=== PATIENT | female | born 1980 ===

== ENCOUNTER 2018-03-11 10:55 | Emergency (ER) | payer OTHER ==
[2018-03-11 11:02] VITALS: BP 127/76; PULSE 74; RESP 16; TEMP 98.4; O2SAT 100
--- NOTE | 2018-03-11 12:53 | ED PDOC ---
HPI: Abdomen Time Seen by Provider: 03/11/18 12:11 Chief Complaint (Nursing): Breast Problem Chief Complaint (Provider): Breast Problem History Per: Patient History/Exam Limitations: no limitations Onset/Duration Of Symptoms: Intermittent Episodes Location Of Pain/Discomfort: Other (left pelvic/lower abdomen) Associated Symptoms: Other (breast pain) Additional Complaint(s): Ankita Ramírez is a 37 year old female with no past medical history, who presents to the emergency department with multiple complaints. Patient states she came in today with left breast pain, onset x3 days ago, associated with urinary symptoms such as increased urgency. Patient states she has had a history of intermittent left breast pain that comes and goes and varies in intensity for the past x5 years, that is associated with no swelling, nipple discharge or skin changes. She also reports to have intermittent left pelvic/lower abdominal pain that also varies in intensity. Patient currently has no abdominal pain. She states she has seen "medical providers" for the same symptoms over the past x5 years who have told her that nothing is wrong. Pt. denies fevers, n/v/d. PMD: No provider Past Medical History Reviewed: Historical Data, Nursing Documentation, Vital Signs Vital Signs: Last Vital Signs Temp 98.4 F 03/11/18 11:01 Pulse 74 03/11/18 11:01 Resp 16 03/11/18 11:01 BP 127/76 03/11/18 11:01 Pulse Ox 100 03/11/18 11:01 - Medical History PMH: No Chronic Diseases - Surgical History Surgical History: No Surg Hx - Family History Family History: States: Unknown Family Hx - Allergies Allergies/Adverse Reactions: Allergies Allergy/AdvReac Type Severity Reaction Status Date / Time No Known Allergies Allergy Verified 03/11/18 11:20 Review of Systems ROS Statement: Except As Marked, All Systems Reviewed And Found Negative Cardiovascular: Positive for: Other (Breast pain) Gastrointestinal: Positive for: Abdominal Pain Genitourinary Female: Positive for: Other (urgency) Physical Exam - Reviewed Nursing Documentation Reviewed: Yes Vital Signs Reviewed: Yes - Physical Exam Appears: Positive for: Non-toxic, No Acute Distress Head Exam: Positive for: ATRAUMATIC, NORMOCEPHALIC Skin: Positive for: Normal Color Cardiovascular/Chest: Positive for: Regular Rate, Rhythm, Other. Negative for: Murmur Respiratory: Negative for: Respiratory Distress Gastrointestinal/Abdominal: Positive for: Normal Exam, Soft. Negative for: Tenderness Comments: Breasts Exam: No swelling, tenderness or palpable mass, (-) nipple discharge, skin changes, (-) axillary lymphadenopathy (bilaterally) - Laboratory Results Urine POC: Negative - ECG O2 Sat by Pulse Oximetry: 100 (RA) Pulse Ox Interpretation: Normal Medical Decision Making Medical Decision Making: Time:12:54 Plan: --Urine dipstick --Urine --Chest X-ray U. preg neg U.dip neg Chest x-ray was found to be normal. Pt. well appearing abd is soft/nt. Stressed importance of close f/u for breast pain; exam is normal here but US/Mammo may be needed, as malignancy cannot be ruled out. Scribe Attestation: Documented by Timbo Iqbal, acting as a scribe for Elodia Guzman PA-C. Provider Scribe Attestation: All medical record entries made by the Scribe were at my direction and personally dictated by me. I have reviewed the chart and agree that the record accurately reflects my personal performance of the history, physical exam, medical decision making, and the department course for this patient. I have also personally directed, reviewed, and agree with the discharge instructions and disposition. Disposition - Clinical Impression Clinical Impression: Pain of breast - Patient ED Disposition Is Patient to be Admitted: No - Disposition Referrals: [facility] [Outside] [facility] [Outside] Disposition: Routine/Home Disposition Time: 13:59 Condition: STABLE Instructions: Mastalgia (DC) Forms: [employer] ([place]an) Print Language: MACEDONIAN
--- NOTE | 2018-03-11 13:34 | RAD ---
Date of service: 03/11/2018 HISTORY: pain COMPARISON: No prior. TECHNIQUE: Chest PA and lateral FINDINGS: LUNGS: No active pulmonary disease. PLEURA: No significant pleural effusion identified. No pneumothorax apparent. CARDIOVASCULAR: No aortic atherosclerotic calcification present. Normal cardiac size. No pulmonary vascular congestion. OSSEOUS STRUCTURES: No significant abnormalities. VISUALIZED UPPER ABDOMEN: Normal. OTHER FINDINGS: None. IMPRESSION: No active disease.
== END 2018-03-11 14:21 | disposition home or self-care (01) ==
LOC: H.ER 10:55
DX: N64.4 Mastodynia (principal)